=== PATIENT | female | born 1985 | race Caucasian/White ===

== ENCOUNTER 2020-08-14 22:52 | Emergency (ER) | payer SELFPAY ==
[2020-08-14] MEDS ORDERED: IBUPROFEN 400 MG TAB ONE (23:30)
--- NOTE | 2020-08-15 00:16 | ER ---
Nurse's Notes [facility] Name: Doris Whitt Age: 35 yrs Sex: Female : 1985 Arrival Date: 08/14/2020 Time: 22:53 Bed 14 Private MD: Diagnosis: Other specified sprain of left wrist Presentation: 08/14 23:00 Chief complaint: Patient states: I was walking and tripped over the yellow parking sg block, fell onto my left arm. reports having pain in the left wrist, left elbow and left shoulder, states pain as well as numbness to the left upper extremitiy. denies head injury or LOC at this time for triage. Coronavirus screen: Client denies travel out of the [place] in the last 14 days. At this time, the client does not indicate any symptoms associated with coronavirus-19. Ebola Screen: Patient negative for fever greater than or equal to 101.5 degrees Fahrenheit, and additional compatible Ebola Virus Disease symptoms Patient denies exposure to infectious person. Patient denies travel to an Ebola-affected area in the 21 days before illness onset. No symptoms or risks identified at this time. Initial Sepsis Screen: Does the patient meet any 2 criteria? No. Patient's initial sepsis screen is negative. Does the patient have a suspected source of infection? No. Patient's initial sepsis screen is negative. Risk Assessment: Do you want to hurt yourself or someone else? Patient reports no desire to harm self or others. Onset of symptoms was August 14, 2020. Care prior to arrival: None. 23:00 Acuity: FELIZ 4 sg 23:00 Method Of Arrival: Ambulatory Historical: - Allergies: 23:03 Codeine; sg - Home Meds: 23:03 None [Active]; sg - PMHx: 23:03 None; sg - PSHx: 23:03 Tubal ligation; sg - Immunization history:: Adult Immunizations up to date. - Social history:: Smoking status: Patient denies any tobacco usage or history of. Patient/guardian denies using alcohol, street drugs, The patient lives with family. - Family history:: not pertinent. Screenin:00 Abuse screen: Denies threats or abuse. Nutritional screening: No deficits noted. jv1 Tuberculosis screening: No symptoms or risk factors identified. Fall Risk Fall in past 12 months (25 points). Primary Survey: 23:00 A: The patient is alert. Airway: patent. Breathing/Chest: Respiratory pattern: regular, jv1 Respiratory effort: spontaneous, Breath sounds: clear. Circulation:. 23:36 NO uncontrolled hemorrhage observed. jv1 Assessment: 23:00 General: Appears uncomfortable, well groomed, well developed, Behavior is calm, jv1 cooperative, appropriate for age. Pain: Complains of pain in left hand and left arm, left shoulder, left wrist Pain does not radiate. Pain currently is 9 out of 10 on a pain scale. Quality of pain is described as aching, Pain began 1 hour ago. Neuro: Level of Consciousness is awake, alert, obeys commands. Cardiovascular: Denies chest pain, Heart tones S1 S2 Capillary refill < 3 seconds. Respiratory: Airway is patent Respiratory effort is even, unlabored, Respiratory pattern is regular, symmetrical, Breath sounds are clear bilaterally. GI: Abdomen is round non-distended, Bowel sounds present X 4 quads. : No signs and/or symptoms were reported regarding the genitourinary system. EENT: No signs and/or symptoms were reported regarding the EENT system. Derm: Skin is intact, is healthy with good turgor. Musculoskeletal: Circulation, motion, and sensation intact. Capillary refill < 3 seconds, Range of motion: limited in left shoulder, left elbow and left wrist left hand. Injury Description:. 08/15 00:42 Reassessment: provider in the room with pt. He explained that to the pt that the pt can jv1 move her left shoulder, left elbow and her fingers except the left thumb. He also said no heavy lifting, no computer work and he wants the thumb immobilized until the pt gets another xray after 2 weeks. pt is a [employer] and provider said she needs to rest for 2 weeks until she gets another xray after 2 weeks. Provider signed her paper for work. Vital Signs: 08/14 23:00 BP 148 / 88; Pulse 88; Resp 18; Temp 97.7; Pulse Ox 100% on R/A; Weight 90.72 kg (R); sg Height 5 ft. 4 in. (162.56 cm) (R); Pain 10/10; 23:00 BP 124 / 87; Pulse 98; Resp 18; Temp 98.4; Pulse Ox 100% ; Pain 9/10; jv1 08/15 00:00 BP 125 / 85; Pulse 88; Resp 18; Temp 98.1; Pulse Ox 98% ; Pain 6/10; jv1 01:00 BP 125 / 85; Pulse 89; Resp 18; Temp 98.2; Pulse Ox 100% ; Pain 4/10; jv1 08/14 23:00 Body Mass Index 34.33 (90.72 kg, 162.56 cm) Isabela Coma Score: 08/14 23:00 Eye Response: spontaneous(4). Verbal Response: oriented(5). Motor Response: obeys jv1 commands(6). Total: 15. ED Course: 22:53 Patient arrived in ED. am2 22:55 Sina Rouse MD is Attending Physician. ma2 23:00 Patient has correct armband on for positive identification. Bed in low position. Call jv1 light in reach. Side rails up X2. Adult w/ patient. 23:02 Triage completed. 23:03 Arm band placed on. sg 08/15 00:06 Hand Left 3 View XRAY In Process Unspecified. EDMS 00:11 Wrist Left (3 View) XRAY In Process Unspecified. EDMS 00:11 Forearm Left XRAY In Process Unspecified. EDMS 01:10 No provider procedures requiring assistance completed. Patient did not have IV access jv1 during this emergency room visit. Administered Medications: 08/14 23:25 Drug: Motrin 400 mg Route: PO; jv1 08/15 01:14 Follow up: Response: No adverse reaction; Pain is decreased jv1 Outcome: 00:15 Discharge ordered by . ma2 01:10 Discharged to home ambulatory. jv1 01:10 Condition: stable 01:10 Discharge instructions given to patient, Instructed on discharge instructions, follow up and referral plans. medication usage, splint usage Demonstrated understanding of instructions, follow-up care, medications, splint care, Prescriptions given X 1. 01:15 Patient left the ED. jv1 Signatures: Dispatcher [employer] EDMS Hang Hobbs, RN RN Doris Andino am2 Sina Rouse MD MD wi2 Michelle Avila RN RN jv1 Corrections: (The following items were deleted from the chart) 01:14 01:00 BP 125 / 85; Pulse 89bpm; Resp 18bpm; Pulse Ox 100%; Temp 98.2F; Pain 6/10; jv1 jv1
--- NOTE | 2020-08-15 00:16 | EDPHYS ---
Physician Documentation [facility] Name: Doris Whitt Age: 35 yrs Sex: Female : 1985 Arrival Date: 08/14/2020 Time: 22:53 Bed 14 Private MD: ED Physician Sina Rouse HPI: 08/14 23:26 This 35 yrs old Female presents to ER via Ambulatory with complaints of Fall ma2 Injury, Arm Pain. 23:26 Details of fall: The patient fell from a supine position. Onset: The symptoms/episode ma2 began/occurred suddenly, 1 hour(s) ago. Severity of symptoms: At their worst the symptoms were moderate, in the emergency department the symptoms are unchanged. The patient has not experienced similar symptoms in the past. Historical: - Allergies: 23:03 Codeine; sg - Home Meds: 23:03 None [Active]; sg - PMHx: 23:03 None; sg - PSHx: 23:03 Tubal ligation; sg - Immunization history:: Adult Immunizations up to date. - Social history:: Smoking status: Patient denies any tobacco usage or history of. Patient/guardian denies using alcohol, street drugs, The patient lives with family. - Family history:: not pertinent. ROS: 23:26 Constitutional: Negative for fever, chills, and weight loss. ma2 23:26 All other systems are negative. Exam: 23:26 Constitutional: This is a well developed, well nourished patient who is awake, alert, ma2 and in no acute distress. ENT: Nares patent. No nasal discharge, no septal abnormalities noted. Tympanic membranes are normal and external auditory canals are clear. Oropharynx with no redness, swelling, or masses, exudates, or evidence of obstruction, uvula midline. Mucous membranes moist. Neck: Trachea midline, no thyromegaly or masses palpated, and no cervical lymphadenopathy. Supple, full range of motion without nuchal rigidity, or vertebral point tenderness. No Meningismus. Chest/axilla: Normal chest wall appearance and motion. Nontender with no deformity. No lesions are appreciated. Cardiovascular: Regular rate and rhythm with a normal S1 and S2. No gallops, murmurs, or rubs. Normal PMI, no JVD. No pulse deficits. Respiratory: Lungs have equal breath sounds bilaterally, clear to auscultation and percussion. No rales, rhonchi or wheezes noted. No increased work of breathing, no retractions or nasal flaring. Abdomen/GI: Soft, non-tender, with normal bowel sounds. No distension or tympany. No guarding or rebound. No evidence of tenderness throughout. Skin: Warm, dry with normal turgor. Normal color with no rashes, no lesions, and no evidence of cellulitis. MS/ Extremity: ttp over left wrist and hand, no pain at sniff box, nerovascular intact, Pulses equal, no cyanosis. Neurovascular intact. Full, normal range of motion. Neuro: Awake and alert, GCS 15, oriented to person, place, time, and situation. Cranial nerves II-XII grossly intact. Motor strength 5/5 in all extremities. Sensory grossly intact. Cerebellar exam normal. Normal gait. Vital Signs: 23:00 BP 148 / 88; Pulse 88; Resp 18; Temp 97.7; Pulse Ox 100% on R/A; Weight 90.72 kg (R); sg Height 5 ft. 4 in. (162.56 cm) (R); Pain 10/10; 23:00 BP 124 / 87; Pulse 98; Resp 18; Temp 98.4; Pulse Ox 100% ; Pain 9/10; jv1 08/15 00:00 BP 125 / 85; Pulse 88; Resp 18; Temp 98.1; Pulse Ox 98% ; Pain 6/10; jv1 01:00 BP 125 / 85; Pulse 89; Resp 18; Temp 98.2; Pulse Ox 100% ; Pain 4/10; jv1 08/14 23:00 Body Mass Index 34.33 (90.72 kg, 162.56 cm) Isabela Coma Score: 08/14 23:00 Eye Response: spontaneous(4). Verbal Response: oriented(5). Motor Response: obeys jv1 commands(6). Total: 15. MDM: 22:55 Patient medically screened. ma2 23:26 Differential diagnosis: abrasion, contusion, fracture, multiple trauma, sprain, strain. ca2 08/15 00:13 Data reviewed: vital signs, nurses notes. Counseling: I had a detailed discussion with ma2 the patient and/or guardian regarding: the historical points, exam findings, and any diagnostic results supporting the discharge/admit diagnosis, the presence of at least one elevated blood pressure reading (>120/80) during this emergency department visit. Response to treatment: the patient's symptoms have markedly improved after treatment. ED course: given mechanism of fallolga i recommend repeated xray in 2 weeks, patient understood, to rule out scaphoid frx, will put her in thumb spika . 08/14 23:08 Order name: Hand Left 3 View XRAY ca2 08/14 23:08 Order name: Wrist Left (3 View) XRAY ca2 08/14 23:08 Order name: Forearm Left XRAY ma2 08/15 00:13 Order name: Splint: thumb spika; Complete Time: 01:14 ma2 Administered Medications: 08/14 23:25 Drug: Motrin 400 mg Route: PO; jv1 08/15 01:14 Follow up: Response: No adverse reaction; Pain is decreased jv1 Disposition: 08/15/20 00:15 Discharged to Home. Impression: Other specified sprain of left wrist. - Condition is Stable. - Discharge Instructions: Wrist Sprain. - Prescriptions for Diclofenac Sodium 75 mg Oral Tablet Sustained Release - take 1 tablet by ORAL route 2 times per day; 30 tablet. - Medication Reconciliation Form, Thank You Letter, Antibiotic Education, Prescription Opioid Use, Work release form form. - Follow up: Private Physician; When: Tomorrow; Reason: Recheck today's complaints, Continuance of care. Signatures: Dispatcher [employer] EDHang Wang RN RN Sina Rouse MD MD ca2 Michelle Avila RN RN jv1 Corrections: (The following items were deleted from the chart) 01:15 00:15 08/15/2020 00:15 Discharged to Home. Impression: Other specified sprain of left jv1 wrist. Condition is Stable. Prescriptions for Diclofenac Sodium 75 mg Oral Tablet Sustained Release - take 1 tablet by ORAL route 2 times per day; 30 tablet. and Forms are Medication Reconciliation Form, Thank You Letter, Antibiotic Education, Prescription Opioid Use. Follow up: Private Physician; When: Tomorrow; Reason: Recheck today's complaints, Continuance of care. ma2
[2020-08-15 05:41] VITALS: BP 125/85
[2020-08-15 05:42] VITALS: TEMP 98.2; O2SAT 100
--- NOTE | 2020-08-15 07:51 | RAD REPORT ---
EXAM DESCRIPTION: RAD - Hand Left 3 View - 08/15/2020 12:02 am CLINICAL HISTORY: DEFORMITY, trip and fall COMPARISON: None. FINDINGS: No fracture, dislocation or periosteal reaction noted. No foreign body or other soft tissu e abnormality. IMPRESSION: Negative left hand examination.
--- NOTE | 2020-08-15 07:52 | RAD REPORT ---
EXAM DESCRIPTION: RAD - Wrist Left 3 View - 08/15/2020 12:03 am CLINICAL HISTORY: PAIN, trip and fall COMPARISON: No comparisons FINDINGS: No fracture is identified. There is no dislocation or periosteal reaction noted. No foreig n body or other soft tissue abnormality. IMPRESSION: Negative left wrist examination.
--- NOTE | 2020-08-15 07:53 | RAD REPORT ---
EXAM DESCRIPTION: RAD - Forearm Left - 08/15/2020 12:04 am CLINICAL HISTORY: PAIN, trip and fall COMPARISON: None. FINDINGS: Left radial head fracture is present. Sagittal oriented fracture involves the articular arellano rface. No measurable displacement of the fracture fragment. There is an additional transverse fractur e at the metaphyseal epiphyseal junction. There is no dislocation or periosteal reaction noted. No foreign body or other soft tissue abnormality. IMPRESSION: Left radial head fracture as detailed.
== END 2020-08-15 01:15 | disposition home or self-care (01) ==
LOC: ER 22:52
DX: S63.592A Other specified sprain of left wrist, initial encounter (principal); W18.09XA Striking against other object with subsequent fall, initial encounter; Y93.01 Activity, walking, marching and hiking; Y92.9 Unspecified place or not applicable; Z88.5 Allergy status to narcotic agent
CPT/HCPCS: 99283